=== PATIENT | female | born 2000 | race African-American/Black ===

== ENCOUNTER 2025-09-23 13:31 | Emergency (ER) | payer MEDICAID ==
[~2025-09-23] VITALS: Ht 175.3 cm; Wt 87.7 kg
[2025-09-23 13:33] VITALS: BP 144/92; PULSE 84; RESP 18; TEMP 97.9; O2SAT 99
== END 2025-09-23 14:11 | disposition home or self-care (01) ==
LOC: EMS 13:34
DX: M54.12 Radiculopathy, cervical region (principal)
CPT/HCPCS: 99282; Z7502